=== PATIENT | female | born 1990 | race Two or more races ===

== ENCOUNTER 2018-10-01 09:10 | Emergency (ER) | payer MEDICAID, OTHER ==
[~2018-10-01] VITALS: Ht 160 cm; Wt 77.1 kg
[2018-10-01 09:17] VITALS: BP 112/72
[2018-10-01 09:49] LABS: Urine Bacteria FEW /hpf (None Seen); Urine Blood TRACE /uL (Negative); Urine Mucus FEW (None Seen); Urine Specific Gravity 1.021 (1.001-1.035); Urine WBC 6 /hpf (0 - 5)
== END 2018-10-01 12:01 | disposition home or self-care (01) ==
LOC: ER 09:10
DX: O23.31 Infections of other parts of urinary tract in pregnancy, first trimester (principal); Z3A.01 Less than 8 weeks gestation of pregnancy
CPT/HCPCS: 36415; 76801; 76817; 81001; 84702

== ENCOUNTER 2019-05-15 17:00 | Inpatient (IN) | payer MEDICAID ==
[~2019-05-15] VITALS: Ht 160 cm; Wt 74.8 kg
[2019-05-15 18:14] LABS: Basophils # (auto) 0 uL; Mean Corpuscular Volume 80.8 fL (80.0-100.0); Monocytes # (auto) 0.5 uL
[2019-05-15 18:15] LABS: Basophils % (auto) 0.2 % (0.0-2.0); Eosinophils # (auto) 0 uL; Eosinophils % (auto) 0.5 % (0.0-7.0); Hematocrit 36.7 % (36.0-46.0); Hemoglobin 11.7 g/dL (12.2-16.2); Lymphocytes # (auto) 1.8 uL; Lymphocytes % (auto) 17.7 % (10.0-50.0); Mean Corpuscular Hemoglobin 25.6 pg (28.0-32.0); Mean Corpuscular Hgb Conc. 31.7 g/dL (32.0-36.0); Monocytes % (auto) 4.8 % (0.0-12.0); Neutrophils # (auto) 7.7 uL; Neutrophils % (auto) 76.8 % (37.0-80.0); Platelet Count (auto) 288 10^3/uL (140-450); Red Blood Cells 4.55 10^6/uL (4.0-5.20); Red Cell Distribution Width 17.6 % (11.8-14.3); White Blood Cell 10.1 10^3/uL (4.4-10.8)
[2019-05-15 18:28] LABS: Albumin 3.3 g/dL (3.4-5.0); Anion Gap 7 (5-15); Blood Urea Nitrogen 13 mg/dL (7-18); Calcium 8.5 mg/dL (8.5-10.1); Carbon Dioxide 24 mmol/L (21-32); Chloride 107 mmol/L (98-107); Glucose 95 mg/dL (74-106); Potassium 3.8 mmol/L (3.5-5.1); Sodium 138 mmol/L (136-145)
[2019-05-15 18:34] LABS: Alanine Aminotransferase 29 U/L (13-56); Alkaline Phosphatase 115 U/L (45-117); Aspartate Aminotransferase 20 U/L (15-37); BUN/Creatinine Ratio 22.8; Bilirubin, Total 0.2 mg/dL (0.2-1.0); GFR African American 160 mL/min; GFR Non-African American 132 mL/min; Total Protein 7.9 g/dL (6.4-8.2)
[2019-05-15 19:11] LABS: INR 0.95 (0.9-1.15)
[2019-05-15] MEDS ORDERED: ONDANSETRON HCL 4 MG/2 ML VIAL IV ONE ×2 (19:30→22:30)
[2019-05-15] MEDS ORDERED: MORPHINE SULF INJ 2 MG/ML SYRINGE 1ML IV ONE (19:30)
[2019-05-15] MEDS ORDERED: SODIUM CHLORIDE 0.9% 1,000 ML IV ONE (19:30)
[2019-05-15] MEDS ORDERED: IOHEXOL 350 MG/ML 100ML IJ ONE ×2 (20:27→20:54)
[2019-05-15] MEDS ORDERED: cefTRIAXone 1GM/50ML D5W 50 ML IV ONE (22:30)
[2019-05-15] MEDS ORDERED: HYDROmorphone HCL 2 MG/ML VL IV ONE (22:30)
[2019-05-15] MEDS ORDERED: HEPARIN DRIP/D5W 100UNITS/ML 250 ML IV SCH (23:28)
[2019-05-15] MEDS ORDERED: HEPARIN SODIUM (PORCINE) 5000 UNITS/ML 1ML VIAL IV ONE (23:30)
[2019-05-16] MEDS ORDERED: NITROGLYCERIN 0.4 MG SL TAB SL PRN (00:45)
[2019-05-16] MEDS ORDERED: MORPHINE SULF INJ 2 MG/ML SYRINGE 1ML IV PRN ×2 (00:45→18:15)
[2019-05-16] MEDS ORDERED: TEMAZEPAM 15 MG CAP PO PRN (00:45)
[2019-05-16] MEDS ORDERED: ONDANSETRON HCL 4 MG/2 ML VIAL IV PRN (00:45)
[2019-05-16] MEDS ORDERED: ALBUTEROL SULF 2.5 MG/0.5ML(0.5%) NEB SOLN NEB PRN (01:15)
--- NOTE | 2019-05-16 01:20 | NUR ---
Respiratory note: PT ASSESSED FOR PRN MED NEB TX. HR 72, RR 16, SPO2 98% ON RA. NO SIGNS OF ANY RESPIRATORY DISTRESS NOTED. ADVISED PT TO CALL IF TX IS NEEDED.
[2019-05-16] MEDS: ACETAMINOPHEN 325 MG TAB PO PRN ×2 (03:17→15:25)
[2019-05-16 03:36] VITALS: BP 115/72
[2019-05-16 06:27] LABS: Partial Thromboplastin Time 84.3 sec (23.64-32.05)
[2019-05-16 06:40] LABS: Urine Bacteria NONE SEEN /hpf (None Seen); Urine Blood Negative /uL (Negative); Urine WBC 1 /hpf (0 - 5)
[2019-05-16 06:46] LABS: Urine Specific Gravity > 1.050 (1.001-1.035)
[2019-05-16] MEDS: LEVOFLOXACIN 500MG 100 ML IV SCH (10:07)
[2019-05-16] MEDS: FAMOTIDINE 20 MG TAB PO SCH ×2 (10:13→23:49)
[2019-05-16 12:24] LABS: INR 0.99 (0.9-1.15)
--- NOTE | 2019-05-16 12:25 | NUR ---
Respiratory note: ASSESSED PT FOR PRN TX PT WAS AWAKE AND ALERT, NO RESP DISTRESS NOTED. HR 75, RR 16, SPO2 96% ON R/A. NO INDICATION FOR TX AT THIS TIME. PT KNOWS TO HAVE RT PAGED IF TX IS NEEDED.
[2019-05-16] MEDS ORDERED: HEPARIN SODIUM (PORCINE) 5000 UNITS/ML 1ML VIAL ONE (12:55)
[2019-05-16] MEDS ORDERED: HEPARIN SODIUM (PORCINE) 5000 UNITS/ML 1ML VIAL IV ONE (13:00)
[2019-05-16] MEDS ORDERED: ACETAMINOPHEN 325 MG TAB PO PRN (18:15)
[2019-05-16 18:45] LABS: INR 1.04 (0.9-1.15); Partial Thromboplastin Time 59.5 sec (23.64-32.05)
[2019-05-16] MEDS ORDERED: HEPARIN DRIP/D5W 100UNITS/ML 250 ML IV SCH (18:45)
[2019-05-16] MEDS: HYDROcodone-ACET 5/325MG TAB PO PRN (22:22)
--- NOTE | 2019-05-17 06:00 | NUR ---
Respiratory note: ROUTINE PRN MN TX CHECK. HR 90, RR 18, POX 100% ON RA, BREATH SOUNDS ARE CLEAR. NO SOB OR DISTRESS NOTED. PT WAS NOTIFY TO CALL RT FOR MN TX.
[2019-05-17 06:41] LABS: Basophils # (auto) 0 uL; Basophils % (auto) 0.6 % (0.0-2.0); Eosinophils # (auto) 0.1 uL; Lymphocytes # (auto) 1.8 uL; Monocytes # (auto) 0.7 uL; Neutrophils # (auto) 5.1 uL; White Blood Cell 7.7 10^3/uL (4.4-10.8)
[2019-05-17 06:43] LABS: Eosinophils % (auto) 0.9 % (0.0-7.0); Hematocrit 33.4 % (36.0-46.0); Hemoglobin 10.8 g/dL (12.2-16.2); Lymphocytes % (auto) 23.6 % (10.0-50.0); Mean Corpuscular Hemoglobin 26.1 pg (28.0-32.0); Mean Corpuscular Hgb Conc. 32.4 g/dL (32.0-36.0); Mean Corpuscular Volume 80.6 fL (80.0-100.0); Neutrophils % (auto) 65.9 % (37.0-80.0); Nucleated Red Blood Cells % 0.1 %; Platelet Count (auto) 230 10^3/uL (140-450); Red Blood Cells 4.14 10^6/uL (4.0-5.20); Red Cell Distribution Width 17.9 % (11.8-14.3)
[2019-05-17 07:00] LABS: BUN/Creatinine Ratio 18.5; Calcium 8.3 mg/dL (8.5-10.1); Potassium 3.8 mmol/L (3.5-5.1)
[2019-05-17] MEDS: HYDROcodone-ACET 5/325MG TAB PO PRN ×2 (08:48→16:58)
[2019-05-17] MEDS: LEVOFLOXACIN 500MG 100 ML IV SCH (09:43)
[2019-05-17] MEDS: APIXABAN 5 MG TAB PO SCH ×2 (09:44→22:13)
[2019-05-17] MEDS: FAMOTIDINE 20 MG TAB PO SCH (09:44)
[2019-05-17] MEDS ORDERED: APIX5TAB PO (13:14)
[2019-05-17] MEDS ORDERED: LEVO500T21 PO (13:14)
[2019-05-17 18:15] LABS: Hematocrit 34.4 % (36.0-46.0)
[2019-05-17 21:45] VITALS: BP 109/72
[2019-05-17] MEDS ORDERED: APIXABAN 5 MG TAB PO SCH (22:00)
== END 2019-05-17 22:17 | disposition home or self-care (01) | DRG 561 ==
LOC: ER 17:05 → TELE 17:06
PROVIDERS: ADMIT Nurse Practitioner; ATTEND Internal Medicine
DX: O88.23 Thromboembolism in the puerperium (principal); J06.9 Acute upper respiratory infection, unspecified; O99.53 Diseases of the respiratory system complicating the puerperium; O90.81 Anemia of the puerperium; Z79.01 Long term (current) use of anticoagulants
CPT/HCPCS: 36415; 71046; 71275; 80048; 80053; 81001; 84484; 85014; 85018; 85025; 85379; 85610; 85730; 87040; 93306; 93970; G0378; J0696; J1956; J2405

== ENCOUNTER 2020-03-06 03:49 | Emergency (ER) | payer MEDICAID ==
[~2020-03-06] VITALS: Ht 160 cm; Wt 78.6 kg
[~2020-03-06 03:49] MED LIST: APIX5TAB PO; LEVO500T21 PO
[2020-03-06 07:08] LABS: Urine Bacteria NONE SEEN /hpf (None Seen); Urine Blood Negative /uL (Negative); Urine Mucus FEW (None Seen); Urine Specific Gravity 1.026 (1.001-1.035); Urine WBC 1 /hpf (0 - 5)
[2020-03-06 07:45] LABS: Basophils # (auto) 0 10 ^3/uL (0-0.2); Basophils % (auto) 0.2 % (0.0-2.0); Eosinophils # (auto) 0.1 10 ^3/uL (0-0.8); Eosinophils % (auto) 1.5 % (0.0-7.0); Hematocrit 39.7 % (36.0-46.0); Hemoglobin 13.1 g/dL (12.2-16.2); Lymphocytes # (auto) 2.3 10 ^3/uL (0.4-5.4); Lymphocytes % (auto) 29.4 % (10.0-50.0); Mean Corpuscular Hemoglobin 28.9 pg (28.0-32.0); Mean Corpuscular Hgb Conc. 32.9 g/dL (32.0-36.0); Mean Corpuscular Volume 87.6 fL (80.0-100.0); Monocytes # (auto) 0.7 10 ^3/uL (0-1.3); Monocytes % (auto) 8.3 % (0.0-12.0); Neutrophils # (auto) 4.8 10 ^3/uL (1.6-8.6); Neutrophils % (auto) 60.6 % (37.0-80.0); Nucleated Red Blood Cells % 0.1 %; Platelet Count (auto) 197 10^3/uL (140-450); Red Blood Cells 4.53 10^6/uL (4.0-5.20); Red Cell Distribution Width 15.5 % (11.8-14.3)
[2020-03-06 08:04] LABS: Albumin 3.7 g/dL (3.4-5.0); BUN/Creatinine Ratio 20.3; Calcium 8.8 mg/dL (8.5-10.1); Potassium 3.8 mmol/L (3.5-5.1)
[2020-03-06 08:06] LABS: Bilirubin, Total 0.2 mg/dL (0.2-1.0); Total Protein 8.1 g/dL (6.4-8.2)
[2020-03-06 09:30] VITALS: BP 126/76
== END 2020-03-06 09:33 | disposition home or self-care (01) ==
LOC: ER 03:51
DX: R10.11 Right upper quadrant pain (principal); Z32.02 Encounter for pregnancy test, result negative; Z88.6 Allergy status to analgesic agent; Z88.1 Allergy status to other antibiotic agents
CPT/HCPCS: 36415; 74176; 80053; 81001; 81025; 85025

== ENCOUNTER 2021-12-28 09:10 | Emergency (ER) | payer MEDICAID ==
[~2021-12-28] VITALS: Ht 160 cm; Wt 75.0 kg
[~2021-12-28 09:10] MED LIST changes: -LEVO500T21 PO; +LEVO500T31 PO
[2021-12-28 10:57] LABS: Alcohol, Urine < 3.0 mg/dL (0-10); Amphetamine Screen, Urine NEGATIVE (NEGATIVE); Barbiturate Scree,Urine NEGATIVE (NEGATIVE); Benzodiazephine Screen, Urine NEGATIVE (NEGATIVE); Cannabinoid Screen, Urine NEGATIVE (NEGATIVE)
[2021-12-28 11:00] LABS: Cocaine Screen, Urine NEGATIVE (NEGATIVE); Opiate Scree,Urine NEGATIVE (NEGATIVE); Phencyclidine Screen, Urine NEGATIVE (NEGATIVE)
[2021-12-28 11:01] LABS: Urine Bacteria NONE SEEN /hpf (None Seen); Urine Blood 1+ /uL (Negative); Urine Mucus FEW (None Seen); Urine Specific Gravity 1.026 (1.001-1.035); Urine WBC 3 /hpf (0 - 5)
[2021-12-28] MEDS ORDERED: IBU600T PO (11:51)
[2021-12-28] MEDS ORDERED: NITR-87 PO (11:51)
[2021-12-28] MEDS ORDERED: HYDROcodone-ACET 10/325MG TAB PO ONE (12:00)
[2021-12-28] MEDS ORDERED: cefTRIAXone SOD 1,000 MG VL IM ONE (12:00)
[2021-12-28] MEDS ORDERED: IOHEXOL 350 MG/ML 100ML IJ ONE (14:47)
[2021-12-28 16:14] VITALS: BP 107/72
== END 2021-12-28 16:41 | disposition home or self-care (01) ==
LOC: ER 09:10
DX: R51.9 Headache, unspecified (principal); N39.0 Urinary tract infection, site not specified; Z79.2 Long term (current) use of antibiotics; Z79.899 Other long term (current) drug therapy; Z88.5 Allergy status to narcotic agent
CPT/HCPCS: 36415; 70450; 71275; 80307; 81001; 81025; 85379; 99285; J0696; Q9967